=== PATIENT | female | born 1970 | race African-American/Black ===

== ENCOUNTER 2020-08-25 23:07 | Emergency (ER) | payer MEDICAID ==
[~2020-08-25] VITALS: Ht 157.5 cm; Wt 80.9 kg
[2020-08-26] MEDS ORDERED: KETOROLAC TROMETHAMINE 30 MG/ML VIAL IM ONE
[2020-08-26 01:24] VITALS: BP 132/78
== END 2020-08-26 01:36 | disposition home or self-care (01) ==
LOC: EMS 23:08
DX: S73.101A Unspecified sprain of right hip, initial encounter (principal); E11.9 Type 2 diabetes mellitus without complications; I10 Essential (primary) hypertension; F17.210 Nicotine dependence, cigarettes, uncomplicated; X58.XXXA Exposure to other specified factors, initial encounter; Y93.89 Activity, other specified; Y92.89 Other specified places as the place of occurrence of the external cause; Y99.8 Other external cause status
CPT/HCPCS: 73502; 82962; 96372; 99283; J1885

== ENCOUNTER 2021-01-14 17:51 | Emergency (ER) | payer MEDICARE, MEDICAID ==
[~2021-01-14] VITALS: Ht 157.5 cm; Wt 77.3 kg
[2021-01-14 18:00] VITALS: BP 129/69
[2021-01-14] MEDS ORDERED: WARF1TAB9 PO (18:00)
[2021-01-14] MEDS ORDERED: TICA60TA PO (18:00)
[2021-01-14 18:10] LABS: GLUCOMETER DEV NAME(LOC) ERT.5; GLUCOSE,POINT OF CARE 132 MG/DL (70-110)
== END 2021-01-14 18:22 | disposition left against medical advice (07) ==
LOC: EMS 17:51
DX: R22.30 Localized swelling, mass and lump, unspecified upper limb (principal); Z53.21 Procedure and treatment not carried out due to patient leaving prior to being seen by health care provider
CPT/HCPCS: 82962

== ENCOUNTER 2021-01-27 18:54 | Emergency (ER) | payer MEDICARE, MEDICAID ==
[~2021-01-27] VITALS: Ht 157.5 cm; Wt 77.3 kg
[~2021-01-27 18:54] MED LIST: TICA60TA PO; WARF1TAB9 PO
[2021-01-27 19:01] VITALS: BP 122/87
[2021-01-27] MEDS ORDERED: ATOR40TA28 PO (19:06)
[2021-01-27] MEDS ORDERED: HYDR-3831 PO (19:06)
[2021-01-27] MEDS ORDERED: METF-960 PO (19:06)
[2021-01-27] MEDS ORDERED: METO25XL PO (19:06)
[2021-01-27] MEDS ORDERED: EMPA10TA PO (19:06)
[2021-01-27] MEDS ORDERED: SPIR-37 PO (19:06)
[2021-01-27] MEDS ORDERED: WARF3TAB8 PO (19:06)
[2021-01-27] MEDS ORDERED: ONDA-104 PO (19:06)
[2021-01-27] MEDS ORDERED: TICA90TA PO (19:06)
[2021-01-27] MEDS ORDERED: LISI-893 PO (19:06)
== END 2021-01-27 19:29 | disposition left against medical advice (07) ==
LOC: EMS 18:56
DX: R07.9 Chest pain, unspecified (principal); Z53.21 Procedure and treatment not carried out due to patient leaving prior to being seen by health care provider
CPT/HCPCS: 93005

== ENCOUNTER 2021-07-11 20:13 | Emergency (ER) | payer MEDICARE, MEDICAID ==
[~2021-07-11] VITALS: Ht 157.5 cm; Wt 79.5 kg
[~2021-07-11 20:13] MED LIST changes: +ATOR40TA28 PO; +EMPA10TA PO; +HYDR-3831 PO; +LISI-893 PO; +METF-1211 PO; +METO25XL PO; +ONDA-104 PO; +SPIR-37 PO; -TICA60TA PO; +TICA90TA PO; -WARF1TAB9 PO; +WARF3TAB8 PO
[2021-07-11 21:29] LABS: BASOPHILS % (AUTO) 0.4 % (0.0-2.0); EOSINOPHILS % (AUTO) 2.1 % (1.0-6.0); HEMATOCRIT 34.6 % (36-46); HEMOGLOBIN 11.7 g/dL (12.0-16.0); LYMPHOCYTES # (AUTO) 2.9 K/uL (1.0-4.8); LYMPHOCYTES % (AUTO) 34.7 % (22.0-44.0); MEAN CORPUSCULAR HEMOGLOBIN 31.6 pg (26.0-34.0); MEAN CORPUSCULAR HGB CONC 33.9 G/dL (31.0-37.0); MEAN CORPUSCULAR VOLUME 93 fL (80-100); MONOCYTES # (AUTO) 0.5 K/uL (0.1-1.0); MONOCYTES % (AUTO) 5.7 % (2.0-9.0); NEUTROPHILS # (AUTO) 4.7 K/uL (1.8-7.7); NEUTROPHILS % (AUTO) 57.1 % (40.0-70.0); PLATELET COUNT (AUTO) 257 K/uL (150-450); RED BLOOD CELL COUNT(AUTO) 3.72 MIL/uL (4.00-5.20); RED CELL DISTRIBUTION WIDTH 14.5 % (11.5-14.5)
[2021-07-11 21:37] LABS: ANION GAP 5 mmol/L (8-16); CALCIUM, TOTAL 9.3 mg/dL (8.8-10.5); CARBON DIOXIDE 30 mmol/L (22-29); CHLORIDE 109 mmol/L (98-107); CREATININE 0.96 mg/dL (0.60-1.30); GLOMERULAR FILTR. RATE CALC > 60 mL/min (>60); GLUCOSE,RANDOM 231 mg/dL (70-110); POTASSIUM 3.8 mmol/L (3.5-5.1); SODIUM SERUM 144 mmol/L (136-145); UREA NITROGEN, BLOOD 14 mg/dL (7-18)
[2021-07-11 21:43] LABS: ALANINE AMINOTRANSFERASE 26 U/L (12-78); ALBUMIN 3.6 g/dL (3.4-5.0); ALKALINE PHOSPHATASE 82 U/L (46-116); ASPARTATE AMINOTRANSFERASE 17 U/L (15-37); BILIRUBIN,TOTAL 0.3 mg/dL (0.1-1.0); TOTAL PROTEIN, SERUM 6.6 g/dL (6.4-8.2)
[2021-07-11] MEDS ORDERED: MORPHINE SULFATE 2 MG/ML SYRINGE IVP ONE (22:00)
[2021-07-12] MEDS ORDERED: ACETAMINOPHEN 325 MG TABLET PO ONE (00:45)
[2021-07-12 01:50] VITALS: BP 127/67
== END 2021-07-12 02:17 | disposition left against medical advice (07) ==
LOC: EMS 20:13
DX: R07.89 Other chest pain (principal); I10 Essential (primary) hypertension; E11.9 Type 2 diabetes mellitus without complications; E78.00 Pure hypercholesterolemia, unspecified; F12.90 Cannabis use, unspecified, uncomplicated; Z87.891 Personal history of nicotine dependence; Z79.84 Long term (current) use of oral hypoglycemic drugs; Z79.899 Other long term (current) drug therapy
CPT/HCPCS: 36415; 71045; 80053; 84484; 85025; 93005; 96374; 99285; J2270

== ENCOUNTER 2022-09-08 12:25 | Emergency (ER) | payer MEDICAID, MEDICARE ==
[~2022-09-08] VITALS: Ht 162.6 cm; Wt 77.3 kg
[~2022-09-08 12:25] MED LIST changes: -EMPA10TA PO; +EMPA10TA3 PO
[2022-09-08 12:39] VITALS: BP 132/94
[2022-09-08] MEDS ORDERED: SEMA0.258 IM. (12:42)
[2022-09-08 13:27] LABS: BASOPHILS % (AUTO) 0.4 % (0.0-2.0); EOSINOPHILS % (AUTO) 0.4 % (1.0-6.0); HEMATOCRIT 42.2 % (36-46); HEMOGLOBIN 14.3 g/dL (12.0-16.0); LYMPHOCYTES # (AUTO) 1.7 K/uL (1.0-4.8); LYMPHOCYTES % (AUTO) 19.6 % (22.0-44.0); MEAN CORPUSCULAR HEMOGLOBIN 33.7 pg (26.0-34.0); MEAN CORPUSCULAR HGB CONC 33.9 G/dL (31.0-37.0); MEAN CORPUSCULAR VOLUME 99 fL (80-100); MONOCYTES # (AUTO) 0.6 K/uL (0.1-1.0); MONOCYTES % (AUTO) 7.3 % (2.0-9.0); NEUTROPHILS # (AUTO) 6.1 K/uL (1.8-7.7); NEUTROPHILS % (AUTO) 72.3 % (40.0-70.0); PLATELET COUNT (AUTO) 292 K/uL (150-450); RED BLOOD CELL COUNT(AUTO) 4.25 MIL/uL (4.00-5.20); RED CELL DISTRIBUTION WIDTH 13.2 % (11.5-14.5)
[2022-09-08 13:40] LABS: INR 1.1 (0.9-1.1); PROTHROMBIN TIME 11.4 SEC (9.4-11.6)
[2022-09-08 13:42] LABS: ANION GAP 9 mmol/L (8-16); CALCIUM, TOTAL 9.9 mg/dL (8.8-10.5); CARBON DIOXIDE 28 mmol/L (22-29); CHLORIDE 104 mmol/L (98-107); CREATININE 0.99 mg/dL (0.60-1.30); GLOMERULAR FILTR. RATE CALC > 60 mL/min (>60); GLUCOSE,RANDOM 105 mg/dL (70-110); POTASSIUM 4.1 mmol/L (3.5-5.1); SODIUM SERUM 141 mmol/L (136-145); UREA NITROGEN, BLOOD 12 mg/dL (7-18)
[2022-09-08 13:45] LABS: B-TYPE NATRIURETIC PEPTIDE < 5 pg/mL (0-100)
[2022-09-08 13:49] LABS: ALANINE AMINOTRANSFERASE 25 U/L (12-78); ALBUMIN 4.8 g/dL (3.4-5.0); ALKALINE PHOSPHATASE 60 U/L (46-116); ASPARTATE AMINOTRANSFERASE 21 U/L (15-37); CREATINE KINASE, TOTAL ONLY 160 U/L (26-192); TOTAL PROTEIN, SERUM 8.3 g/dL (6.4-8.2)
== END 2022-09-08 15:07 | disposition left against medical advice (07) ==
LOC: EMS 12:34
DX: R07.9 Chest pain, unspecified (principal); Z53.21 Procedure and treatment not carried out due to patient leaving prior to being seen by health care provider
CPT/HCPCS: 71045; 80053; 82550; 83880; 84484; 85025; 85610; 85730; 93005; 99281